=== PATIENT | male | born 1945 | race Caucasian/White ===

== ENCOUNTER → 2017-01-24 | Outpatient (CLI) | payer MEDICARE, OTHER ==
[~2017-01-24] MED LIST: AMLODIPINE BESY10 MG PO; ASPIRIN81 M2 PO; CLOPIDOGREL75 MG PO; FLEXERIL10 MG PO; FLOMAX0.4 M1 PO; HYDROCODON-ACE1 EAC5 PO; HYDROGESIC 5/501 CAP PO; IBUPROFEN800 MG PO; TOPROL XL50 MG PO; ZOCOR20 MG PO
--- NOTE | ~2017-01-24 | US6 ---
[facility] A Service of [facility] RADIOLOGY TEXT RESULTS PATIENT: DEBRA ALVAREZ LOCATION: [facility] : 43 UNIT #: [id number] AGE: [address]: ADOLFO HASSAN MD SEX: M ORDER DR: [id number] [address] [address] [id number] O MR#: [id number] Acc #: [id number] NAME: DEBRA ALVAREZ : 1945 SEX: M STUDY DATE/TIME: 01/24/2017 12:48 UNIT: [facility] ROOM: STUDY DESCRIPTION: US Abdominal Limited Attending Physician: Adolfo Hassan M.D. Referring Physician: Adolfo Hassan M.D. Ordering Physician: Adolfo Hassan M.D. Primary Care Physician: Adolfo Hassan M.D. MEDICAL IMAGING REPORT This report is preliminary unless electronic signature is present. EXAM Right upper quadrant ultrasound 01/24/2017 HISTORY Abnormally elevated liver enzymes diagnosed 2 weeks ago. FINDINGS The liver demonstrates an increase in echotexture with attenuation of the ultrasound beam characteristic of mild fatty infiltration. No cystic or solid mass lesions were seen in the liver. The intra and extrahepatic bile ducts are not dilated. The gallbladder contains multiple shadowing gallstones but there is no evidence of gallbladder wall thickening or pericholecystic fluid. The common duct measures 7 mm. The pancreas is poorly visualized due to overlying bowel gas. The right kidney is normal. IMPRESSION 1. Fatty infiltration of the liver. 2. Cholelithiasis. 3. Poor visualization of the pancreas due to overlying bowel gas. Dictated by... Woody Hernandez M.D. THIS IS AN ELECTRONICALLY VERIFIED REPORT Woody Hernandez M.D. at 01/25/2017 8:03 AM RANDA/monica TD: 01/24/2017 20:05 JOB #: [id number] MEDICAL IMAGING REPORT Page 1 of 1
== END | disposition home or self-care (01) ==
LOC: SRAD 12:42 → SGUS 13:00
DX: R79.89 Other specified abnormal findings of blood chemistry (principal); K76.0 Fatty (change of) liver, not elsewhere classified; K80.20 Calculus of gallbladder without cholecystitis without obstruction
CPT/HCPCS: 76705